=== PATIENT | female | born 1965 | race Hispanic/Latino ===

== ENCOUNTER 2017-06-25 07:01 | Outpatient (CLI) | payer BC | END 2017-06-25 07:02 | disposition home or self-care (01) | LOC: BICMRI 07:01 | PROVIDERS: ATTEND Chiropractor | DX: M54.42 Lumbago with sciatica, left side (principal); M47.896 Other spondylosis, lumbar region; M48.061 Spinal stenosis, lumbar region without neurogenic claudication | CPT/HCPCS: 72148 ==

== ENCOUNTER 2017-07-27 11:04 | Outpatient (CLI) | payer BC | END 2017-07-27 11:05 | disposition home or self-care (01) | LOC: BICRAD 11:04 | PROVIDERS: ATTEND Internal Medicine | DX: R10.9 Unspecified abdominal pain (principal) | CPT/HCPCS: 74019 ==

== ENCOUNTER 2017-08-13 08:47 | Outpatient (CLI) | payer BC ==
--- NOTE | 2017-08-13 10:40 | ULT ---
LIVER ULTRASOUND: History: Non-alcoholic hepatitis. Elevated liver function test. FINDINGS: Real-time imaging of the upper abdomen was performed. This shows the gallbladder to have been removed . The common duct is normal in caliber at 5 mm. Liver parenchyma is of increased echogenicity, consis tent with some fatty change. Liver does not appear enlarged. DOPPLER EVALUATION WITH SPECTRAL ANALYSIS: Normal flow pattern within the liver. Spleen is within normal limits in size, it measures 10 cm in length. IMPRESSION: 1. Fatty changes of the liver. 2. Post op cholecystectomy change. POS: BRIDGET
== END 2017-08-13 08:48 | disposition home or self-care (01) ==
LOC: ULT 08:47
PROVIDERS: ATTEND Internal Medicine Gastroenterology
DX: K59.00 Constipation, unspecified (principal); K75.81 Nonalcoholic steatohepatitis (NASH); A04.8 Other specified bacterial intestinal infections; Z90.49 Acquired absence of other specified parts of digestive tract
CPT/HCPCS: 76705

== ENCOUNTER 2017-09-02 09:00 | Outpatient (CLI) | payer BC ==
[2017-09-02 16:48] LABS: Hemoglobin 13.3 g/dL (12.0-16.0); Mean Corpuscular HGB CONC 34.5 g/dL (32.0-36.0); Mean Corpuscular Volume 95.8 fl (81.0-99.0); Mean Platelet Volume 11.7 fL (7.4-10.4); Platelet Count 206 thou/uL (130-400); RBC Distribution Width 11.9 % (11.5-14.5); Red Blood Cell (RBC) Count 4.04 mill/uL (4.20-5.40); White Blood Cell (WBC) Count 11.7 thou/uL (4.8-10.8)
[2017-09-02 16:53] LABS: BHCG - Serum Negative (NEGATIVE); Pregs Control Background? CLEAR/WHITE (CLR/WHITE); Pregs Control Bar Appear? YES (CONTROL BAR)
[2017-09-02 17:12] LABS: Anion Gap 12 mmol/L (10-20); BUN (Urea Nitrogen) 18 mg/dL (7.0-18.7); Calc. Creatinine Clearance 0 mL/min (70-130); Calcium 10.2 mg/dL (7.8-10.44); Carbon Dioxide 29 mmol/L (22-29); Chloride 103 mmol/L (98-107); Estimated GFR-MDRD 75; Glucose 130 mg/dL (70-105); Sodium 140 mmol/L (136-145)
== END 2017-09-02 09:01 | disposition home or self-care (01) ==
LOC: LABBT 09:00
PROVIDERS: ATTEND Obstetrics & Gynecology
DX: Z01.812 Encounter for preprocedural laboratory examination (principal); N85.8 Other specified noninflammatory disorders of uterus
CPT/HCPCS: 80048; 84703; 85027; 86850; 86900; 86901; 93005; 93010

== ENCOUNTER 2017-09-09 10:19 | Day surgery (SDC) | payer BC ==
[2017-09-02 15:24] VITALS: BMI 41.5
--- NOTE | 2017-09-09 06:50 | HP ---
REASON FOR ADMISSION: Persistent complex left adnexal mass. SCHEDULED PROCEDURE: Laparoscopic left salpingo-oophorectomy with da Bernarda robot. HISTORY OF PRESENT ILLNESS: Ms. Martin is a 52-year-old 3, para 3, x1, x3 who h as had a persistent left adnexal mass that was noted back in 2013. It has become somewhat more compl ex over the time while enlarging only slightly, it is approximately 5-6 cm range. CA-125 was within normal limits. It occasionally causes the patient pain. She desires definitive surgical management. OB AND INSULATION INSPECTOR HISTORY: As noted in the HPI. No history of dysplasia or STDs. PAST MEDICAL HISTORY: Diabetes, adult onset, depression, hypertension, hyperlipidemia and hypothyro idism. PAST SURGICAL HISTORY: BTL. ALLERGIES: Denies. MEDICATIONS: Amlodipine, atorvastatin, duloxetine, gabapentin, cloplatazole, metformin and Synthroid . SOCIAL HISTORY: Denies tobacco, alcohol, or drug use. FAMILY HISTORY/REVIEW OF SYSTEMS: Noncontributory. PHYSICAL EXAMINATION: GENERAL: female, 5 foot, 227, BMI 23. VITAL SIGNS: Blood pressure 120/72. HEENT: Within normal limits. LUNGS: Clear to auscultation bilaterally. HEART: Regular rhythm. BREASTS: No masses bilaterally. ABDOMEN: Soft and nontender, without rebound or guarding. PELVIC: Vulva without lesions with a healing vulvar vaginal candidiasis. Cervix is parous. Uterus is anteverted and small. Adnexa unable be palpated. EXTREMITIES: Without clubbing, cyanosis, or edema. IMAGING: Ultrasound on 07/30/2017 revealed persistent complex left adnexal mass with multiple septat ions, largest individual cyst was 4 cm in greatest diameter. LABORATORY AND X-RAY FINDINGS: Hemoglobin A1c of 7.4 and a CA-125 of 10. IMPRESSION: Persistent complex left adnexal mass, likely hydrosalpinx and benign left ovarian cyst. No evidence of malignancy with occasional pain and desires definitive management. Patient with mode rate control diabetes. PLAN: Laparoscopic left salpingo-oophorectomy with da Bernarda robot. The patient understands the risk s and benefits of procedure. Will administer appropriate antibiotic and DVT prophylaxis.
[2017-09-09] MEDS ORDERED: CEFAZOLIN/Water 2 GM/20 ML SYRINGE ONE (10:52)
[2017-09-09] MEDS ORDERED: SODIUM CHLORIDE IVPB SCH (11:00)
[2017-09-09] MEDS ORDERED: IBUPROFEN IVPB SCH (11:00)
[2017-09-09] MEDS ORDERED: ADMIXTURE FEE IVPB SCH (11:00)
[2017-09-09] MEDS ORDERED: Fentanyl 250 MCG/5 ML VIAL ONE (11:12)
[2017-09-09] MEDS ORDERED: Bupivacaine HCl 0.5%/Epinephrine 1:200,000/PF 30 ml Vial ONE (11:21)
[2017-09-09] MEDS ORDERED: Midazolam HCl 2 mg/2 ml Vial ONE (11:38)
--- NOTE | 2017-09-09 16:30 | OP ---
DATE OF PROCEDURE: 09/09/2017 PREOPERATIVE DIAGNOSIS: Complex left adnexal mass. POSTOPERATIVE DIAGNOSIS: Complex left distal fallopian tubes hydrosalpinx, status post bilateral tub al ligation. PROCEDURE PERFORMED: Laparoscopic left distal salpingectomy. SURGEON: Celestine Keenan M.D. SALES ASSISTANT INSTITUTIONAL SALES: Elvia Pyle D.O. ANESTHESIA: General endotracheal. ESTIMATED BLOOD LOSS: Less than 10 mL. COMPLICATIONS: None. MEDICATIONS: Two grams Ancef preincision. DEEP VENOUS THROMBOSIS PROPHYLAXIS: SCDs. OPERATIVE FINDINGS: 1. Normal appearing left ovary. 2. Complex cystic hydrosalpinx consisting of 3 cysts in the distal left fallopian tube post mid segm ent salpingectomy. 3. Normal appearing right tube, ovary and uterus. 4. Omental adhesions to the anterior abdominal wall, reduced. DISPOSITION: To the recovery room in good condition. PATHOLOGY SPECIMEN: Distal left fallopian tube. DESCRIPTION OF OPERATIVE PROCEDURE: After obtaining proper consent, patient was taken to the operati ng room where general endotracheal anesthesia achieved without difficulty. The patient was prepped a nd draped in dorsal lithotomy position in [facility]. Weighted speculum placed in vagina, cervix identified, grasped with single tooth tenaculum at 12 o'clock. The [place] manipulator placed inside. Tenaculum and speculum removed. A Nobles catheter placed. Software Engineer [employer] then changed his gloves and tur ricki his attention to the abdominal portion of procedure. A 5 mL of Marcaine injected in the superior aspect of the umbilicus and an 8 mm skin incision made. Veress needle placed inside the abdominal c avity. Confirmation of entry into the peritoneal cavity via a saline drop test. Insufflation was ca rried out with carbon dioxide to a max pressure of 15, volume approximately 3.5 liters. Once this wa s performed, the 8 mm da Bernarda laparoscope trocar was placed, laparoscope confirmed placement in the abdominal cavity just above the level of omental adhesions to the anterior abdominal wall without any evidence of trauma to underlying viscera. The patient was placed in steep Trendelenburg and right a nd left lateral trocars lateral to the epigastric vessels were placed under direct visualization as w ell as an legal executive assistant 11 mm trocar in the right upper quadrant. The da Bernarda robot was docked and mono polar scissors placed in the right hand and bipolar fenestrated forceps in the left. Attention was t urned to the omental adhesions, which were noted to be not containing any viscera and these were take n down sharply using monopolar cautery off the anterior abdominal wall. Good hemostasis noted and at tention was turned to the pelvis. The operative findings were noted. The distal fallopian tube was grasped and elevated. Decision was made with a completely normal appearing ovary to preserve the ova ry and just removed the distal fallopian tube containing multicystic hydrosalpinx. Coagulation and t ransection was carried across the mesosalpinx, taking care to preserve anatomic vasculature of the le ft ovary, amputating the specimen. Good hemostasis was noted after removal. The hydrosalpinx was no aniya to be divided into three cystic areas, which were each drained of clear fluid. The fluid was suc tioned irrigated out of the pelvis. The distal left fallopian tube was then placed in a retrieval sa c through the 11 mm trocar removed from the abdominal cavity. No other abnormalities were noted. Th e instruments removed, abdomen desufflated of carbon dioxide after undocking the da Bernarda, trocars re moved x4 and skin reapproximated x4 using 4-0 Monocryl and Dermabond. Hulka manipulator and Nobles ca theter were removed. The patient was awakened, extubated, and taken to the recovery room in good con dition.
== END 2017-09-09 15:16 | disposition home or self-care (01) ==
LOC: SDC 10:19
PROVIDERS: ATTEND Obstetrics & Gynecology
PROC: 0UT64ZZ Resection of Left Fallopian Tube, Percutaneous Endoscopic Approach (ICD-10-PCS; principal; 2017-09-09)
DX: N70.11 Chronic salpingitis (principal); N73.6 Female pelvic peritoneal adhesions (postinfective); E11.9 Type 2 diabetes mellitus without complications; F32.9 Major depressive disorder, single episode, unspecified; I10 Essential (primary) hypertension; E78.5 Hyperlipidemia, unspecified; E03.9 Hypothyroidism, unspecified; M19.90 Unspecified osteoarthritis, unspecified site; F17.210 Nicotine dependence, cigarettes, uncomplicated; E66.9 Obesity, unspecified; F41.9 Anxiety disorder, unspecified; Z68.41 Body mass index [BMI] 40.0-44.9, adult; Z79.82 Long term (current) use of aspirin; Z79.84 Long term (current) use of oral hypoglycemic drugs; Z79.899 Other long term (current) drug therapy; Z98.51 Tubal ligation status
CPT/HCPCS: 36416; 88304; J0131; J0670; J2250; J3010; J7050

== ENCOUNTER 2017-10-27 13:59 | Outpatient (CLI) | payer BC ==
--- NOTE | 2017-10-27 15:33 | MMO ---
BILATERAL MAMMOGRAMS: 10/27/17 HISTORY: Screening mammography. COMPARISON: Multiple studies dating back to 01/18/13. FINDINGS: Scattered fibroglandular densities and benign appearing calcifications are again demonstrate. Intrama mmary lymph nodes and focal asymmetric densities are stable. Metallic marker right breast is consiste nt with prior biopsy. No dominant mass or suspicious calcifications. Study was evaluated with the assistance of computer ai ded detection. IMPRESSION: BI-RADS 2: Benign Finding(s) Routine annual screening mammography (for women over age 40). POS: BRIDGET
== END 2017-10-27 14:00 | disposition home or self-care (01) ==
LOC: SCSMAMMO 13:59
PROVIDERS: ATTEND Internal Medicine
DX: Z12.31 Encounter for screening mammogram for malignant neoplasm of breast (principal)
CPT/HCPCS: 77067

== ENCOUNTER 2018-09-09 07:34 | Outpatient (CLI) | payer BC ==
--- NOTE | 2018-09-09 08:44 | ULT ---
COMPLETE ABDOMEN ULTRASOUND: Date: 09/09/18 INDICATION: Right upper quadrant abdominal pain. COMPARISON: None. FINDINGS: There is fatty infiltration of the liver. The gallbladder is surgically absent. Common bile duct hammad ures 3.3 mm. Right kidney measures 13.0 cm in length. Left kidney measures 13.4 cm. No focal renal le delia or hydronephrosis is evident. Visualized aorta and IVC are within normal limits. No free fluid i s identified. Visualized aspects of the pancreas are within normal limits. IMPRESSION: Mild fatty liver. POS: BRIDGET
--- NOTE | 2018-09-09 09:05 | RAD ---
CHEST PA AND LATERAL: HISTORY: Hypertension, bloating, constipation, and abdominal pain and right rib pain. COMPARISON: 01/27/2015. FINDINGS: Heart size is normal. The lungs are clear. IMPRESSION: No acute intrathoracic disease. POS: TPC
--- NOTE | 2018-09-09 09:07 | RAD ---
SUPINE AND UPRIGHT VIEWS OF THE ABDOMEN: History: Constipation, bloating for three weeks. Abdominal pain. FINDINGS: Supine and upright views of the abdomen obtained and demonstrate surgical clips seen in the gallbladd er fossa. A large amount of stool is seen in the colon. No dilated loops of small bowel or colon seen. Mild levoscoliosis seen. IMPRESSION: Constipation without evidence of significant obstruction. POS: JENNY
== END 2018-09-09 07:35 | disposition home or self-care (01) ==
LOC: SCSULT 07:34
PROVIDERS: ATTEND Internal Medicine
DX: I10 Essential (primary) hypertension (principal); R10.84 Generalized abdominal pain; K59.00 Constipation, unspecified; K76.0 Fatty (change of) liver, not elsewhere classified
CPT/HCPCS: 71046; 74019; 76700

== ENCOUNTER 2019-02-02 17:00 | Outpatient (CLI) | payer BC | END 2019-02-02 17:01 | disposition home or self-care (01) | LOC: SLEEPLAB 17:00 | PROVIDERS: ATTEND Internal Medicine | DX: G47.33 Obstructive sleep apnea (adult) (pediatric) (principal); R53.83 Other fatigue; R51 Headache; K21.9 Gastro-esophageal reflux disease without esophagitis; R06.83 Snoring; I10 Essential (primary) hypertension; I25.10 Atherosclerotic heart disease of native coronary artery without angina pectoris; E66.9 Obesity, unspecified; Z68.41 Body mass index [BMI] 40.0-44.9, adult | CPT/HCPCS: 95806 ==

== ENCOUNTER 2019-03-04 07:48 | Outpatient (CLI) | payer BC ==
--- NOTE | 2019-03-04 10:03 | MMO ---
Bilateral MAMMO Bilat Screen DDI+REBEKAH. CLINICAL HISTORY: Patient is 54 years old and is seen for screening. The patient has the following family history of breast cancer: sister, malignant (generic) and niece, malignant (generic). The patient has no personal history of cancer. The patient has a history of right Ultrasound Guided Core Biopsy in 2013 - benign. VIEWS: The views performed were: bilateral craniocaudal with tomosynthesis and bilateral mediolateral oblique with tomosynthesis. FILMS COMPARED: The present examination has been compared to prior imaging studies performed at [facility] on 01/18/2013, 03/08/2014, 03/14/2015 and 10/27/2017. MAMMOGRAM FINDINGS: There are scattered fibroglandular densities. There are no suspicious masses, calcifications or areas of architectural distortion. There are benign appearing calcifications in both breasts. Stable right breast biopsy clip. There are no suspicious masses, suspicious calcifications, or new areas of architectural distortion. IMPRESSION: THERE IS NO MAMMOGRAPHIC EVIDENCE OF MALIGNANCY. A ROUTINE FOLLOW-UP MAMMOGRAM IN 1 YEAR IS RECOMMENDED. THE RESULTS OF THIS EXAM WERE SENT TO THE PATIENT. ACR BI-RADS Category 2 - Benign finding MAMMOGRAPHY NOTE: 1. A negative mammogram report should not delay a biopsy if a dominant of clinically suspicious mass is present. 2. Approximately 10% to 15% of breast cancers are not detected by mammography. 3. Adenosis and dense breasts may obscure an underlying neoplasm. Reported by: ALLEGRA MERRITT MD Electonically Signed: [id number]
== END 2019-03-04 07:49 | disposition home or self-care (01) ==
LOC: BICMAMMO 07:48
PROVIDERS: ATTEND Obstetrics & Gynecology
DX: Z12.31 Encounter for screening mammogram for malignant neoplasm of breast (principal); Z80.3 Family history of malignant neoplasm of breast; Z91.89 Other specified personal risk factors, not elsewhere classified
CPT/HCPCS: 77063; 77067

== ENCOUNTER 2019-03-21 19:30 | Outpatient (CLI) | payer BC | END 2019-03-21 19:31 | disposition home or self-care (01) | LOC: SLEEPLAB 19:30 | PROVIDERS: ATTEND Internal Medicine | DX: G47.33 Obstructive sleep apnea (adult) (pediatric) (principal); I10 Essential (primary) hypertension; I25.10 Atherosclerotic heart disease of native coronary artery without angina pectoris; E66.1 Drug-induced obesity; K21.9 Gastro-esophageal reflux disease without esophagitis; R53.83 Other fatigue | CPT/HCPCS: 95811 ==

== ENCOUNTER 2019-05-18 14:06 | Outpatient (CLI) | payer BC ==
--- NOTE | 2019-05-18 14:36 | RAD ---
XR Chest Pa Lat STANDARD HISTORY: Shortness of breath, chest pain COMPARISON: 09/09/2018 FINDINGS: The heart size is normal. The lungs are well expanded without focal areas of consolidation, pneumothorax or pleural effusions. There are mild degenerative changes in the spine. IMPRESSION: No radiographic evidence of acute cardiopulmonary process.
== END 2019-05-18 14:07 | disposition home or self-care (01) ==
LOC: BICRAD 14:06
PROVIDERS: ATTEND Internal Medicine
DX: R06.02 Shortness of breath (principal)
CPT/HCPCS: 71046

== ENCOUNTER 2019-05-19 18:17 | Observation (INO) | payer BC ==
[2019-05-19 18:54] LABS: #Basophils 0.1 thou/uL (0.0-0.2); #Eosinphils 0.3 thou/uL (0.0-0.7); #Lymphocytes 3.1 thou/uL (1.20-3.40); #Monocytes 0.6 thou/uL (0.11-0.59); #Neutrophils 4.2 thou/uL (1.40-6.50); %Basophils 0.9 % (0.0-1.0); %Eosinophils 3.4 % (0.0-10.0); %Lymphocytes 37.7 % (21.0-51.0); %Monocytes 6.8 % (0.0-10.0); %Neutrophils 51.2 % (42.0-75.0); Hemoglobin 13.5 g/dL (12.0-16.0); Mean Corpuscular HGB CONC 35.5 g/dL (32.0-36.0); Mean Corpuscular Hemoglobin 31.8 pg (27.0-31.0); Mean Corpuscular Volume 89.6 fL (78.0-98.0); Mean Platelet Volume 11.1 fL (7.4-10.4); Platelet Count 199 thou/uL (130-400); RBC Distribution Width 11.4 % (11.5-14.5); Red Blood Cell (RBC) Count 4.26 mill/uL (4.20-5.40); White Blood Cell (WBC) Count 8.1 thou/uL (4.8-10.8)
[2019-05-19] MEDS ORDERED: Nitroglycerin 2% Ointment 1 INCH/1 GM Packet ONE (19:04)
[2019-05-19] MEDS ORDERED: Aspirin Chewable 81 MG TAB ONE (19:04)
--- NOTE | 2019-05-19 19:25 | RAD ---
CHEST ONE VIEW: 05/19/19 HISTORY: Pain. FINDINGS: Normal cardiac silhouette. The lungs and pleural spaces are clear. No pneumothorax or osseous abnorma lities. IMPRESSION: No acute cardiopulmonary process. POS: PPP
[2019-05-19 20:11] LABS: ALT (SGPT) 30 U/L (8-55); AST (SGOT) 38 U/L (5-34); Albumin 4.5 g/dL (3.5-5.0); Alkaline Phosphatase 102 U/L (40-110); Anion Gap 16 mmol/L (10-20); BUN (Urea Nitrogen) 15 mg/dL (9.8-20.1); Bilirubin, Total 0.3 mg/dL (0.2-1.2); CK (CPK) 108 U/L (29-168); Calc. Creatinine Clearance 0 mL/min (70-130); Calcium 9.4 mg/dL (7.8-10.44); Carbon Dioxide 22 mmol/L (22-29); Chloride 105 mmol/L (98-107); Estimated GFR-MDRD 68; Globulin 3.4 g/dL (2.4-3.5); Glucose 188 mg/dL (70-105); Potassium 4.6 mmol/L (3.5-5.1); Protein, Total 7.9 g/dL (6.0-8.3); Sodium 138 mmol/L (136-145)
[2019-05-19 22:46] LABS: Troponin I Less than 0.010 ng/mL (< 0.028)
[2019-05-20 01:36] LABS: Troponin I Less than 0.010 ng/mL (< 0.028)
[2019-05-20] MEDS ORDERED: hydrALAZINE 20 MG/ML VIAL SLOW IVP PRN (02:06)
[2019-05-20] MEDS ORDERED: Calcium Carbonate 500 MG ChewTAB PO PRN (02:06)
[2019-05-20] MEDS ORDERED: cloNIDine 0.1 MG TAB PO PRN (02:06)
[2019-05-20] MEDS ORDERED: Ondansetron PF 4 MG/2 ML Vial IVP PRN (02:06)
[2019-05-20] MEDS ORDERED: HumaLOG 300 UNITS/3 ML VIAL SC PRN ×2 (02:06)
[2019-05-20] MEDS ORDERED: Dextrose 50% Abboject 50 ML SYRINGE SLOW IVP PRN (02:06)
[2019-05-20] MEDS ORDERED: Acetaminophen 500 MG TAB PO PRN (02:06)
[2019-05-20] MEDS ORDERED: Nitroglycerin 0.4 MG TAB (25 Tab Bottle) PO PRN (02:06)
[2019-05-20] MEDS ORDERED: Ondansetron ODT 4 MG TAB PO PRN (02:06)
[2019-05-20] MEDS ORDERED: Dextrose 5% in Water 1,000 ML IV PRN (02:06)
[2019-05-20] MEDS ORDERED: Levothyroxine Sodium 100 MCG TAB PO SCH (06:00)
[2019-05-20 06:12] LABS: Band 1 % (5-11); Eosinophils 5 % (0-10); Hemoglobin 12.3 g/dL (12.0-16.0); Lymphocytes 35 % (21-51); MDiff Complete? YES; Mean Corpuscular Hemoglobin 31.6 pg (27.0-31.0); Mean Corpuscular Volume 90.2 fL (78.0-98.0); Mean Platelet Volume 11.5 fL (7.4-10.4); Monocytes 6 % (0-10); Neutrophil 52 % (42-75); Platelet Count 174 thou/uL (130-400); Platelet Morphology Comment Appears Adequate; RBC Distribution Width 11.3 % (11.5-14.5); Red Blood Cell (RBC) Count 3.89 mill/uL (4.20-5.40); White Blood Cell (WBC) Count 6.4 thou/uL (4.8-10.8)
[2019-05-20 06:23] LABS: ALT (SGPT) 25 U/L (8-55); AST (SGOT) 23 U/L (5-34); Alkaline Phosphatase 95 U/L (40-110); Anion Gap 10 mmol/L (10-20); BUN (Urea Nitrogen) 16 mg/dL (9.8-20.1); Bilirubin, Total 0.2 mg/dL (0.2-1.2); Calc. Creatinine Clearance 140 mL/min (70-130); Calcium 9.2 mg/dL (7.8-10.44); Carbon Dioxide 27 mmol/L (22-29); Cardiac Risk 4.4 (Less than 4.5); Chloride 106 mmol/L (98-107); Cholesterol 109 mg/dl (< 200 Desired); Estimated GFR-MDRD 81; Globulin 2.6 g/dL (2.4-3.5); Glucose 163 mg/dL (70-105); HDL Cholesterol 25 mg/dL (>60 Neg Risk); LDL Cholesterol, Calculated 40 mg/dL; Potassium 3.9 mmol/L (3.5-5.1); Protein, Total 6.6 g/dL (6.0-8.3); Sodium 139 mmol/L (136-145); Triglycerides 220 mg/dL (Less than 150)
--- NOTE | 2019-05-20 08:14 | HP ---
PRIMARY CARE PROVIDER: Dr. Ai Gardner. CHIEF COMPLAINT: Chest pain. HISTORY OF PRESENT ILLNESS: This is a 54-year-old female, who complained of approximately 3-week history of intermittent central chest pain and pressure, becoming more frequent and intense. The patient does note worsening chest pain with activity or motion with some associated shortness of breath. The patient also admits to pain in her neck and shoulder area, but no documented fever, chills, increased cough, congestion, travel history, or family members with similar symptoms. The patient denied any associated abdominal pain, but does admit to several loose stools in the last 24 hours. The patient reports a history of a cardiac catheterization approximately 2 years ago without need for cardiac stent placement. The patient continues to smoke up to a pack of cigarettes daily, but does manage her chronic medication regimen for diabetes mellitus and hypertension. In the emergency room, the patient underwent general evaluation including serial cardiac biomarkers which were negative x3. The patient received aspirin 324 mg in addition to transdermal nitroglycerin. EKG showed question of T-wave changes in the lateral leads and lead I and aVL. PAST MEDICAL HISTORY: 1. Hypertension. 2. Tobacco abuse. 3. Diabetes mellitus type 2. 4. Hypothyroidism. 5. Hyperlipidemia. PAST SURGICAL HISTORY: 1. Status post section. 2. Status post bilateral tubal ligation. 3. Status post cholecystectomy. 4. Status post right ovarian cyst removal. CURRENT MEDICATIONS: 1. Amlodipine 5 mg p.o. daily. 2. Enteric-coated aspirin 81 mg p.o. daily. 3. Lipitor 40 mg p.o. at bedtime. 4. Cymbalta 60 mg p.o. daily. 5. Gabapentin 300 mg p.o. t.i.d. 6. Levothyroxine 100 mcg p.o. daily. 7. Lisinopril 40 mg p.o. at bedtime. 8. Metformin 1000 mg p.o. b.i.d. 9. Omeprazole 20 mg p.o. at bedtime. ALLERGIES: NO KNOWN DRUG ALLERGIES. FAMILY HISTORY: Positive for congestive heart failure and diabetes mellitus. SOCIAL HISTORY: The patient resides in [place], [place]. . Smokes up to a pack of cigarettes daily. Occasional alcohol use. No illicit drug use. REVIEW OF SYSTEMS: CONSTITUTIONAL: Negative for weight loss or gain, ability to conduct usual activities. SKIN: Negative for rash, itching. EYES: Negative for double vision, pain. ENT/MOUTH: Negative for nose bleeding, neck stiffness, pain, tenderness. CARDIOVASCULAR: Negative for palpitations, dyspnea on exertion, orthopnea. RESPIRATORY: Negative for shortness of breath, wheezing, cough, hemoptysis, fever or night sweats. GASTROINTESTINAL: Negative for poor appetite, abdominal pain, heartburn, nausea, vomiting, constipation, or diarrhea. GENITOURINARY: Negative for urgency, frequency, dysuria, nocturia. MUSCULOSKELETAL: Negative for pain, swelling. NEUROLOGIC/PSYCHIATRIC: Negative for anxiety, depression. ALLERGY/IMMUNOLOGIC: Negative for skin rash, bleeding tendency. Otherwise negative except as stated per HPI. PHYSICAL EXAMINATION: VITAL SIGNS: On admission, blood pressure 137/75, pulse 87, respiratory rate 16, temperature 98.1 degrees Fahrenheit, O2 saturation 98% on room air. GENERAL APPEARANCE: This is a 54-year-old female, alert and oriented x3, pleasant, responsive, in no acute distress. HEENT: Pupils are equal, round, reactive to light and accommodation. Extraocular muscles are intact. No scleral icterus. No conjunctival injection. Nares patent. OP is clear. Teeth in fair repair. NECK: Supple. No cervical adenopathy. No thyromegaly. No carotid bruits. No JVD appreciated. Cervical spine with full active and passive range of motion. No meningeal signs noted. CHEST: Lungs are clear to auscultation bilaterally. CARDIOVASCULAR: S1, S2 without noted murmur, rub, or gallop. Mild tenderness to palpation in the mid sternum region. ABDOMEN: Rounded, soft, nontender, and nondistended. Bowel sounds are positive in all 4 quadrants. There is no hepatosplenomegaly. No abdominal bruits. No rebound or guarding appreciated. EXTREMITIES: Warm and dry with fair turgor. No clubbing, cyanosis, or asymmetric edema appreciated. Pulses palpable distally at the dorsalis pedis, posterior tibial, and popliteal arteries bilaterally. Capillary refill less than 2 seconds. NEUROLOGIC: Cranial nerves 2 through 12 are grossly intact. No focal or lateralizing signs appreciated. PERTINENT LABORATORY AND X-RAY FINDINGS: Basic metabolic profile within normal limits. AST 38, ALT of 30, alkaline phosphatase 102, total bilirubin 0.3. Troponin I negative x3. White blood cell count 8.1, hemoglobin 13.5, hematocrit 38, platelet count 199 with normal differential. Portable chest x-ray dated 05/19/2019 showed no acute cardiopulmonary process. EKG dated 05/19/2019, by my interpretation, shows sinus mechanism with heart rates in the 80s. Normal R-wave progression noted in the precordial leads. Normal axis. T-wave inversion in leads V4 through V6. ASSESSMENT AND PLAN: 1. Chest pain. The patient will be observed on the telemetry unit. We will proceed with exercise Cardiolite stress testing in the a.m. Check fasting lipid profile. Continue aspirin 325 mg daily. 2. Hypertension. Resume home blood pressure regimen and monitor clinical response. Hydralazine p.r.n. systolic greater than or equal to 170. 3. Diabetes mellitus type 2. Insulin sliding scale for reflexive coverage. Hold metformin pending Cardiolite stress testing. ADA diet. Serial Accu-Cheks before meals and at bedtime. 4. Hypothyroidism. Continue levothyroxine 100 mcg p.o. daily. 5. Tobacco abuse. We will offer smoking cessation resources prior to discharge. 6. Prophylaxis. SCDs while in bed. Pepcid 20 mg p.o. b.i.d. CODE STATUS: Full. Surrogate medical decision maker is the patient's spouse. Job ID: [id number]
[2019-05-20] MEDS ORDERED: Aspirin 325 mg Enteric Coated Tablet PO SCH (09:00)
[2019-05-20] MEDS ORDERED: Famotidine 20 MG TAB PO SCH (09:00)
[2019-05-20] MEDS ORDERED: DULoxetine 60 MG CAP PO SCH (09:00)
[2019-05-20] MEDS ORDERED: Amlodipine 5 MG TAB PO SCH (09:00)
[2019-05-20] MEDS: Gabapentin 300 MG CAP PO SCH ×2 (09:26→16:19)
--- NOTE | 2019-05-20 12:52 | NM ---
Radionucleotide stress only myocardial perfusion scan with CT attenuation correction and SPECT imagin g Left ventricular wall motion evaluation and ejection fraction HISTORY: Ap protocol. Total test time 6:30. Homogeneous uptake of radiotracer throughout the left ventricular myocardium. No focal perfusion defe ct evident. QGS analysis of gated SPECT images shows slight dyskinesis of the distal lateral wall. Ejection fract ion calculated at 69%. IMPRESSION: Normal myocardial perfusion scan. Normal LVEF.
[2019-05-20 15:40] VITALS: BMI 42.1
[2019-05-20 17:11] VITALS: BP 128/64; TEMP 97.9
[2019-05-20] MEDS ORDERED: Lisinopril 20 MG TAB PO SCH (21:00)
[2019-05-20] MEDS ORDERED: Atorvastatin Calcium 40 MG TAB PO SCH (21:00)
[2019-05-20] MEDS ORDERED: FLU VACC QS2019-20(6MOS UP)/PF 60 MCG/0.5 ML SYRINGE IM ONE (21:00)
--- NOTE | 2019-05-22 04:56 | PDOC.EVN ---
Event Note - Event Note Event Note: Discharge summary dictated. #[id number]
--- NOTE | 2019-05-22 05:12 | DIS ---
DATE OF ADMISSION: 05/19/2019 DATE OF DISCHARGE: 05/20/2019 PRIMARY CARE PHYSICIAN: Ai Gardner MD DISCHARGE DIAGNOSES: 1. Atypical chest pain. 2. Hypertension. 3. Type 2 diabetes mellitus. 4. Hypothyroidism. 5. Tobacco abuse. 6. Anxiety disorder. 7. Hyperlipidemia. HOSPITAL COURSE: A 54-year-old female admitted with intermittent chest pain, which was described as pressure and has been due of more frequent and intense in recent days. Acute myocardial infarction was ruled out with serial troponin. The patient was later risk stratified with nuclear stress test, which was negative. The patient remained stable and asymptomatic and was subsequently discharged home. She was however instructed to lead a less stressful life and to quit smoking. PHYSICAL EXAMINATION: VITAL SIGNS: Temperature 97.9, pulse 80, respiratory rate 16, SpO2 of 96% on room air, blood pressure is 128/64. GENERAL: Obese female, in no obvious distress. Afebrile, anicteric, acyanotic. HEENT: Normocephalic, atraumatic. Oral mucosa is moist. CARDIOVASCULAR: Regular rhythm and rate with normal heart sounds 1 and 2. RESPIRATORY: Good air entry bilaterally with no crackle or rhonchi or use of accessory muscles. GI: Abdomen is obese, soft, nontender, nondistended with normal bowel sounds. EXTREMITIES: Grossly normal looking, atraumatic, with no edema or erythema. LAY OUT HELPER: Conscious, alert, oriented x3 with appropriate mental status. DISCHARGE CONDITION: Improved. DISCHARGE DISPOSITION: Home. DISCHARGE MEDICATIONS: 1. Amlodipine 5 mg daily. 2. Aspirin 81 mg p.o. daily. 3. Lipitor 40 mg p.o. daily at bedtime. 4. Cymbalta 60 mg p.o. daily. 5. Gabapentin 300 mg t.i.d. 6. Levothyroxine 100 mcg p.o. daily. 7. Lisinopril 40 mg p.o. daily at bedtime. 8. Metformin 1000 mg p.o. b.i.d. 9. Omeprazole 20 mg p.o. daily at bedtime. Job ID: [id number]
== END 2019-05-20 17:00 | disposition home or self-care (01) ==
LOC: ERS 18:17 → INTOOBSV 21:45 → 2NO 21:45
PROVIDERS: ADMIT Internal Medicine; ATTEND Internal Medicine
DX: R07.89 Other chest pain (principal); I10 Essential (primary) hypertension; E03.9 Hypothyroidism, unspecified; E11.9 Type 2 diabetes mellitus without complications; F17.210 Nicotine dependence, cigarettes, uncomplicated; E78.5 Hyperlipidemia, unspecified; E78.00 Pure hypercholesterolemia, unspecified; F32.9 Major depressive disorder, single episode, unspecified; F41.9 Anxiety disorder, unspecified; E66.9 Obesity, unspecified; Z68.41 Body mass index [BMI] 40.0-44.9, adult; Z79.82 Long term (current) use of aspirin; Z79.84 Long term (current) use of oral hypoglycemic drugs; Z79.899 Other long term (current) drug therapy
CPT/HCPCS: 36415; 36416; 71045; 78452; 80053; 80061; 82550; 84484; 85007; 85025; 85027; 93005; 93017; 94760; A9500; G0378

== ENCOUNTER 2020-03-07 09:58 | Outpatient (CLI) | payer BC ==
--- NOTE | 2020-03-07 11:59 | MRI ---
MRI cervical spine noncontrast: 03/07/2020 HISTORY: 55-year-old female with M 54.2 cervicalgia, and bilateral cervical radiculopathy COMPARISON: None FINDINGS: Vertebral body heights are maintained. Mild-moderate disc space narrowing at C5-6. No severe disc spa ce narrowing at any level. Loss of lordosis which could be due to positioning or muscle spasm. No major bone marrow signal abnormality. Cervical spinal cord is normal in size and signal. No high-grad e facet DJD at any level. Cervical spinal canal slightly small in caliber on a congenital basis due to developmentally short pedicles. Exacerbated at certain levels by mild spondylosis. C1-2: No high-grade central stenosis. C2-3: Normal C3-4: Small bilateral uncinate process osteophytes. No significant exacerbation of central spinal can al caliber. No neural foraminal stenosis. C4-5: Tiny central disc protrusion. No significant exacerbation of spinal canal caliber. No neural fo raminal stenosis. Small bilateral uncinate process osteophytes. C5-6: Shallow central and bilateral paracentral disc protrusion. Mild central spinal canal stenosis.. No neural foraminal stenosis. Small bilateral uncinate process osteophytes. C6-7:Shallow central and bilateral paracentral disc protrusion. Mild-moderate central spinal canal st enosis.. No neural foraminal stenosis. Small bilateral uncinate process osteophytes. C7-T1: Normal IMPRESSION: Mild cervical spondylosis.
== END 2020-03-07 09:59 | disposition home or self-care (01) ==
LOC: BICMRI 09:58
PROVIDERS: ATTEND Orthopaedic Surgery
DX: M54.2 Cervicalgia (principal); M47.812 Spondylosis without myelopathy or radiculopathy, cervical region
CPT/HCPCS: 72141

== ENCOUNTER 2020-03-14 11:08 | Outpatient (CLI) | payer BC ==
--- NOTE | 2020-03-15 10:09 | MMO ---
Bilateral MAMMO Bilat Screen DDI+REBEKAH. CLINICAL HISTORY: Patient is 55 years old and is seen for screening. The patient has the following family history of breast cancer: sister, malignant (generic) and niece, malignant (generic). The patient has no personal history of cancer. The patient has a history of right Ultrasound Guided Core Biopsy in 2013 - benign. VIEWS: The views performed were: bilateral craniocaudal with tomosynthesis and bilateral mediolateral oblique with tomosynthesis. FILMS COMPARED: The present examination has been compared to prior imaging studies performed at [facility] on 03/08/2014, 03/14/2015 and 10/27/2017, and at [facility] on 03/04/2019. This study has been interpreted with the assistance of computer-aided detection. MAMMOGRAM FINDINGS: There are scattered fibroglandular densities. Benign calcifications are noted bilaterally. Right biopsy clip. There are no suspicious masses, suspicious calcifications, or new areas of architectural distortion. IMPRESSION: THERE IS NO MAMMOGRAPHIC EVIDENCE OF MALIGNANCY. A ROUTINE FOLLOW-UP MAMMOGRAM IN 1 YEAR IS RECOMMENDED. THE RESULTS OF THIS EXAM WERE SENT TO THE PATIENT. ACR BI-RADS Category 2 - Benign finding MAMMOGRAPHY NOTE: 1. A negative mammogram report should not delay a biopsy if a dominant of clinically suspicious mass is present. 2. Approximately 10% to 15% of breast cancers are not detected by mammography. 3. Adenosis and dense breasts may obscure an underlying neoplasm. Reported by: CAMMIE HI MD Electonically Signed: [id number]
== END 2020-03-14 11:09 | disposition home or self-care (01) ==
LOC: BICMAMMO 11:08
PROVIDERS: ATTEND Internal Medicine
DX: Z12.31 Encounter for screening mammogram for malignant neoplasm of breast (principal); Z80.3 Family history of malignant neoplasm of breast; Z91.89 Other specified personal risk factors, not elsewhere classified
CPT/HCPCS: 77063; 77067

== ENCOUNTER 2020-10-10 12:53 | Emergency (ER) | payer BC ==
[2020-10-10 13:28] LABS: #Basophils 0.1 thou/uL (0.0-0.2); #Eosinphils 0.1 thou/uL (0.0-0.7); #Lymphocytes 3.4 thou/uL (1.20-3.40); #Monocytes 0.7 thou/uL (0.11-0.59); #Neutrophils 6.8 thou/uL (1.40-6.50); %Basophils 0.5 % (0.0-1.0); %Eosinophils 1.3 % (0.0-10.0); %Lymphocytes 30.8 % (21.0-51.0); %Monocytes 5.9 % (0.0-10.0); %Neutrophils 61.5 % (42.0-75.0); Hemoglobin 12.7 g/dL (12.0-16.0); Mean Corpuscular HGB CONC 33.5 g/dL (32.0-36.0); Mean Corpuscular Hemoglobin 31.1 pg (27.0-31.0); Mean Corpuscular Volume 92.9 fL (78.0-98.0); Mean Platelet Volume 10.7 fL (7.4-10.4); Platelet Count 183 thou/uL (130-400); RBC Distribution Width 11.4 % (11.5-14.5); Red Blood Cell (RBC) Count 4.08 mill/uL (4.20-5.40); White Blood Cell (WBC) Count 11.1 thou/uL (4.8-10.8)
[2020-10-10 14:13] LABS: ALT (SGPT) 26 U/L (8-55); AST (SGOT) 21 U/L (5-34); Albumin 4.2 g/dL (3.5-5.0); Alkaline Phosphatase 107 U/L (40-110); Anion Gap 16 mmol/L (10-20); BUN (Urea Nitrogen) 10 mg/dL (9.8-20.1); Bilirubin, Total 0.4 mg/dL (0.2-1.2); Calc. Creatinine Clearance 0 mL/min (70-130); Carbon Dioxide 24 mmol/L (22-29); Chloride 103 mmol/L (98-107); Globulin 2.5 g/dL (2.4-3.5); Glucose 167 mg/dL (70-105); Lipase 75 U/L (8-78); Magnesium 1.5 mg/dL (1.6-2.6); Potassium 3.9 mmol/L (3.5-5.1); Protein, Total 6.7 g/dL (6.0-8.3); Sodium 139 mmol/L (136-145)
[2020-10-10] MEDS ORDERED: Ketorolac Tromethamine 30 MG/ML VIAL ONE (17:32)
[2020-10-10] MEDS ORDERED: Acetaminophen 500 MG TAB ONE (17:32)
[2020-10-10] MEDS ORDERED: diphenhydrAMINE 50 MG/ML VIAL ONE (17:32)
[2020-10-10] MEDS ORDERED: Prochlorperazine Maleate 5 MG TAB ONE (17:32)
[2020-10-10] MEDS ORDERED: Promethazine HCl 25 MG/ML VIAL ONE (17:35)
[2020-10-10] MEDS ORDERED: Prochlorperazine 10 MG/2 ML VIAL IVP SCH (18:15)
== END 2020-10-10 19:46 | disposition home or self-care (01) ==
LOC: ERS 12:53
DX: G44.209 Tension-type headache, unspecified, not intractable (principal); R07.89 Other chest pain; Z79.899 Other long term (current) drug therapy; Z79.82 Long term (current) use of aspirin; Z79.84 Long term (current) use of oral hypoglycemic drugs; E03.9 Hypothyroidism, unspecified; E11.9 Type 2 diabetes mellitus without complications; E78.5 Hyperlipidemia, unspecified; E78.00 Pure hypercholesterolemia, unspecified; I10 Essential (primary) hypertension; K21.9 Gastro-esophageal reflux disease without esophagitis; F17.210 Nicotine dependence, cigarettes, uncomplicated; I31.0 Chronic adhesive pericarditis; Z20.822 Contact with and (suspected) exposure to COVID-19
CPT/HCPCS: 36415; 71045; 80053; 83690; 83735; 84484; 85025; 87635; 93005; 94760; 96374; 96375; J0780; J1200; J1885; J2550; Q0164; U0003; U0005

== ENCOUNTER 2021-06-13 20:16 | Emergency (ER) | payer OTHER, BC | END 2021-06-14 01:25 | disposition home or self-care (01) | LOC: ERS 20:16 | DX: S09.90XA Unspecified injury of head, initial encounter (principal); S70.02XA Contusion of left hip, initial encounter; S40.012A Contusion of left shoulder, initial encounter; V49.40XA Driver injured in collision with unspecified motor vehicles in traffic accident, initial encounter; I10 Essential (primary) hypertension; E78.5 Hyperlipidemia, unspecified; E78.00 Pure hypercholesterolemia, unspecified; E03.9 Hypothyroidism, unspecified; K21.9 Gastro-esophageal reflux disease without esophagitis; E11.9 Type 2 diabetes mellitus without complications; F17.210 Nicotine dependence, cigarettes, uncomplicated; Z79.82 Long term (current) use of aspirin; Z79.84 Long term (current) use of oral hypoglycemic drugs | CPT/HCPCS: 70450; 71045 ==

== ENCOUNTER 2022-05-01 13:58 | Emergency (ER) | payer OTHER, BC ==
[2022-05-01] MEDS ORDERED: Acetaminophen 500 MG TAB ONE (14:39)
== END 2022-05-01 15:55 | disposition home or self-care (01) ==
LOC: ERS 13:58
DX: S01.511A Laceration without foreign body of lip, initial encounter (principal); R11.0 Nausea; E11.9 Type 2 diabetes mellitus without complications; E78.5 Hyperlipidemia, unspecified; E78.00 Pure hypercholesterolemia, unspecified; I10 Essential (primary) hypertension; K21.9 Gastro-esophageal reflux disease without esophagitis; F17.210 Nicotine dependence, cigarettes, uncomplicated; W26.8XXA Contact with other sharp object(s), not elsewhere classified, initial encounter
CPT/HCPCS: 70450

== ENCOUNTER 2023-06-12 07:08 | Outpatient (CLI) | payer BC | END 2023-06-12 07:09 | disposition home or self-care (01) | LOC: BICULT 07:08 | PROVIDERS: ATTEND Physician Assistant Medical | DX: E11.9 Type 2 diabetes mellitus without complications (principal); K75.81 Nonalcoholic steatohepatitis (NASH); K76.0 Fatty (change of) liver, not elsewhere classified; R16.0 Hepatomegaly, not elsewhere classified | CPT/HCPCS: 76700 ==

== ENCOUNTER 2024-01-15 10:10 | Outpatient (CLI) | payer BC | END 2024-01-15 10:11 | disposition home or self-care (01) | LOC: RAD 10:10 | PROVIDERS: ATTEND Family Medicine | DX: R10.11 Right upper quadrant pain (principal); Z90.49 Acquired absence of other specified parts of digestive tract; Z87.19 Personal history of other diseases of the digestive system | CPT/HCPCS: 74018 ==

== ENCOUNTER 2024-01-19 10:44 | Outpatient (CLI) | payer BC | END 2024-01-19 10:45 | disposition home or self-care (01) | LOC: BICRAD 10:44 | PROVIDERS: ATTEND Internal Medicine | DX: R10.11 Right upper quadrant pain (principal); M54.50 Low back pain, unspecified; M47.816 Spondylosis without myelopathy or radiculopathy, lumbar region | CPT/HCPCS: 72100 ==